=== PATIENT | male | born 2000 | race Caucasian/White ===

== ENCOUNTER 2020-06-20 14:04 | Emergency (ER) | payer BC ==
[2020-06-20] MEDS ORDERED: LORazepam 2 MG/ML SDV IVPUSH ONE (14:15)
[2020-06-20] MEDS ORDERED: fentaNYL 100 MCG/2 ML SDV IVPUSH ONE (14:15)
--- NOTE | 2020-06-20 14:19 | EDM.PDOC ---
ED HPI GENERAL MEDICAL PROBLEM - General Stated Complaint: L SHOULDER INJURY Time Seen by Provider: 06/20/20 14:13 Source of Information: Reports: Patient, Family, RN Notes Reviewed History Limitations: Reports: No Limitations - History of Present Illness INITIAL COMMENTS - FREE TEXT/NARRATIVE: 19-year-old gentleman presents emergency department a complaint of left shoulder pain, he injured himself playing hockey he has had shoulder dislocation in the past but it he usually has popped and by itself, this when he admits to playing to aggressively - Related Data Allergies Allergy/AdvReac Type Severity Reaction Status Date / Time No Known Allergies Allergy Verified 06/20/20 14:25 Home Meds: Home Meds NK [No Known Home Meds] 06/20/20 [History] Past Medical History - Past Health History Medical/Surgical History: Denies Medical/Surgical History Social & Family History - Tobacco Use Tobacco Use Status *Q: Never Tobacco User Review of Systems - Review of Systems Review Of Systems: See Below Musculoskeletal: Reports: Shoulder Pain ED EXAM, GENERAL - Physical Exam Exam: See Below Free Text/Narrative:: Examination left shoulder I do appreciate a deformity in the anterior aspect he will not move this arm so difficult to do an exam without pain radial pulses +2 Exam Limited By: No Limitations General Appearance: Alert, WD/WN, No Apparent Distress Course - Vital Signs Last Recorded V/S: Last Vital Signs Temp 97.5 F 06/20/20 14:35 Pulse 60 06/20/20 14:35 Resp 15 06/20/20 14:35 BP 161/63 H 06/20/20 14:35 Pulse Ox 99 06/20/20 14:35 - Orders/Labs/Meds Orders: Active Orders 24 hr Category Date Time Status Shoulder 1V Lt [CR] Stat Exams 06/20/20 14:15 Taken Shoulder Comp Lt [CR] Stat Exams 06/20/20 14:28 Taken DME for Discharge [COMM] Stat Oth 06/20/20 14:31 Ordered Meds: Medications Discontinued Medications Generic Name Dose Route Start Last Admin Trade Name Rehan PRN Reason Stop Dose Admin Fentanyl 50 mcg 06/20/20 14:15 06/20/20 14:24 Sublimaze IVPUSH 06/20/20 14:16 50 mcg ONETIME ONE Administration Lorazepam 1 mg 06/20/20 14:15 Ativan IVPUSH 06/20/20 14:16 ONETIME ONE Departure - Departure Time of Disposition: 14:47 Disposition: Home, Self-Care 01 Condition: Fair Clinical Impression: Unspecified dislocation of left shoulder joint, initial encounter - Discharge Information Instructions: Shoulder Dislocation, [id number] Referrals: PCP,Not In Area [Primary Care Provider] - Additional Instructions: Please remain in the shoulder immobilizer for comfort until you are reevaluated by your primary care, continue to use ibuprofen or Tylenol as needed for pain control, follow-up with your primary care upon return home Sepsis Event Note (ED) - Focused Exam Vital Signs: Vital Signs Temp Pulse Resp BP Pulse Ox 06/20/20 14:35 97.5 F 60 15 161/63 H 99 - My Orders Last 24 Hours: My Active Orders 06/20/20 14:15 Shoulder 1V Lt [CR] Stat 06/20/20 14:28 Shoulder Comp Lt [CR] Stat 06/20/20 14:31 DME for Discharge [COMM] Stat - Assessment/Plan Last 24 Hours: My Active Orders 06/20/20 14:15 Shoulder 1V Lt [CR] Stat 06/20/20 14:28 Shoulder Comp Lt [CR] Stat 06/20/20 14:31 DME for Discharge [COMM] Stat Plan: Assessment Acuity = acute Site and laterality = left shoulder dislocation anterior Etiology = secondary sports injury Manifestations = none Location of injury = Home Lab values = x-rays reveal dislocation with post reduction films I do not appreciate any fracture official read radiologist pending Plan He is placed in a shoulder immobilizer Motrin as needed for pain control follow- up with orthopedics upon return home This note was dictated using [employer] voice recognition software please call with any questions on syntax or grammar.
--- NOTE | 2020-06-22 09:35 | CR ---
Shoulder 1V Lt, Shoulder Comp Lt CLINICAL HISTORY: Pain, dislocation FINDINGS: There is anterior dislocation of the humerus. Glenohumeral articulations are smooth. AC joint is intact IMPRESSION: Anterior dislocation of the left shoulder Shoulder 1V Lt, Shoulder Comp Lt CLINICAL HISTORY: Postreduction FINDINGS: Previous anterior dislocation has been reduced. No fracture or bony deformity is identified. IMPRESSION: Reduction of anterior dislocation
== END 2020-06-20 14:59 | disposition home or self-care (01) ==
LOC: JP.ED 14:04
DX: S43.015A Anterior dislocation of left humerus, initial encounter (principal); X50.9XXA Other and unspecified overexertion or strenuous movements or postures, initial encounter; Y93.22 Activity, ice hockey
CPT/HCPCS: 73020; 73030; 96374; 99283; J3010